=== PATIENT | female | born 1990 | race Caucasian/White ===

== ENCOUNTER 2025-04-20 13:29 | Emergency (ER) | payer OTHER, SELFPAY ==
[2025-04-20 13:40] VITALS: BP 141/93
[2025-04-20 13:56] LABS: Hematocrit 37.5 % (37.0-47.0); Hemoglobin 12.7 g/dL (12.0-16.0); Mean Corp Hgb Conc. 33.9 g/dL (33.0-37.0); Mean Corpuscular Volume 87.6 fL (81.0-99.0); Nucleated Red Blood Cells % 0 %; Platelet Count 284 10^3/uL (130-400); Red Cell Dist. Width 13.0 % (11.5-14.5)
[2025-04-20 14:06] LABS: INR 0.93; PT 12.8 Sec (11.4-14.6)
[2025-04-20 14:07] LABS: APTT 28.3 Sec (23.4-35.0)
[2025-04-20 14:25] LABS: ALT (SGPT) 12 U/L (0-35); AST (SGOT) 18 U/L (14-36); Albumin 4.1 g/dl (3.5-5.0); Alkaline Phosphatase 55 U/L (38-126); Blood Urea Nitrogen 13 mg/dl (7-17); Calcium 9.3 mg/dl (8.4-10.2); Carbon Dioxide 29 mmol/L (22-30); Chloride 108 mmol/L (98-107); Glucose 90 mg/dl (70-99); Potassium 4.2 mmol/L (3.5-5.1); Sodium 137 mmol/L (135-145); Total Protein 6.8 g/dl (6.3-8.2); eGFR > 60.00
[2025-04-20 14:36] LABS: Troponin I < 0.012 ng/ml
[2025-04-20 15:38] VITALS: BMI 24.2
[2025-04-20 15:43] VITALS: BP 111/65
[2025-04-20 16:00] VITALS: BP 97/73
--- NOTE | 2025-04-20 16:09 | ED.GENMED ---
History of Present Illness
General
Chief Complaint: Chest Pain
Time Seen by Provider: 04/20/25 16:08
History of Present Illness
History of Present Illness:
TIME OF INITIAL EVALUATION
- 4:10 PM
REVIEW OF OLD RECORDS
- The patient has history of ectopic . In 2023, the patient had an unremarkable wrist x-ray.
Note:
CHIEF COMPLAINT(S)
Sharp chest pains for the past three days.
HISTORY OF PRESENT ILLNESS
The patient is a 34-year-old female who presented with sharp chest pains that have been present intermittently for the past three days, causing her to wake up from sleep. She reports that the pain can occur at any time, including while at work and
during the night. Each episode of pain is severe enough to disturb her rest, but she notes that she can also go hours without any pain. The patient denies any history of blood clots, although she reports a family history of multiple sclerosis on her
mothers side. She is currently on control pills. She mentioned experiencing flu-like symptoms, including body aches for about a week, and noted an aching sensation in her arm, but denies any cold symptoms apart from a very bad headache.
On examination, the patient�s vital signs were normal. The attending provider noted that the cardiac blood work, including troponin levels, was normal, and no evidence of a heart attack was found. An electrocardiogram (EKG) was performed; the
computer initially read a prolonged QT interval, but the attending physician confirmed the EKG as normal upon manual review. There was no pain elicited upon palpation of the chest, and lung auscultation revealed clear breath sounds.
The attending physician considered the possibility of a pulmonary embolism and ordered a D-dimer blood test to rule out a blood clot. An x-ray was discussed but deemed unnecessary based on clinical findings.
PHYSICAL EXAM
General: Alert, no acute distress.
Skin: Warm, dry.
Head: Normocephalic, atraumatic.
Neck: Supple, trachea midline.
Eye, Ears, Nose, Mouth, and Throat: Oral mucosa moist.
Cardiovascular: Normal peripheral perfusion, no edema.
Respiratory: Respirations are non-labored, clear lung sounds on auscultation, there is no significant chest wall tenderness breath sounds are clear and equal, there is no clinical evidence for pneumothorax.
Gastrointestinal: Abdomen nondistended.
Back: Normal range of motion, normal alignment.
Musculoskeletal: Normal ROM and strength.
Neurological: Alert and oriented to person, place, time, and situation, no focal neurological deficit observed.
Psychiatric: Cooperative, appropriate mood and affect.
PLAN
1. Order a D-dimer blood test to screen for blood clots.
2. Consider an x-ray only if clinical symptoms evolve indicating the need�I offered and considered however the patient declined.
3. Follow up with the primary care physician if symptoms persist or worsen.
DIFFERENTIAL DIAGNOSIS
The Differential Diagnosis includes, in no particular order and is not limited to:
1. Costochondritis
2. Musculoskeletal pain
3. Pulmonary embolism
4. Myocardial infarction
5. Pneumothorax
6. Anxiety or panic disorder
7. Gastroesophageal reflux disease
8. Pericarditis
9. Acute coronary syndrome
10. Viral infection
RADIOLOGY
- Will hold off based on physical examination and patient preference
EKG
- Sinus 70, normal axis, no acute ST abnormality, QTc 440 ms
LABS
- White count 4.6, hemoglobin normal, chemistries and troponin unremarkable
UPDATE
-SUMMARY OF ENCOUNTER
The patient, a 34-year-old female, presented with sharp chest pains occurring intermittently over the past three days. She described the pain as severe enough to disrupt sleep, but it also subsides for hours at a time. The attending physician
evaluated the patient, reviewing cardiac workup results, including a negative troponin test, indicating no signs of a heart attack. An electrocardiogram (EKG) initially read a prolonged QT interval, but the attending confirmed the EKG as normal upon
manual review. The decision was made to hold off on a chest x-ray due to equal lung sounds and lack of indication for immediate imaging. The provider mentioned the possibility of a condition called costochondritis or a viral infection, and reassured
the patient that no life-threatening conditions were apparent at this visit.
PLAN
1. Arranged for a D-dimer blood test to rule out the presence of blood clots.
2. Considered an x-ray only if clinical symptoms necessitate.
3. Advised follow-up with the primary care physician if symptoms persist or worsen.
INDEPENDENT REVIEW OF LABS AND INTERPRETATION OF TESTS
My independent review of troponin levels indicates no sign of a heart attack.
My independent interpretation of the EKG is normal with no sign of a prolonged QT interval.
PATIENT EDUCATION AND COUNSELING
The patient was informed about possible causes of her chest pain, including costochondritis or a viral infection, and reassured that no immediate life-threatening condition was identified. She was advised to monitor her symptoms and to return if
they worsen.
FOLLOW-UP INSTRUCTIONS
The patient was advised to follow up with her primary care physician if the symptoms persist or worsen.
MEDICAL DECISION MAKING
- Complexity of Data Reviewed:
Chronic conditions affecting care include a family history of multiple sclerosis. Differential Diagnosis included costochondritis, musculoskeletal pain, pulmonary embolism, myocardial infarction, pneumothorax, anxiety or panic disorder,
gastroesophageal reflux disease, pericarditis, acute coronary syndrome, and viral infection.
- Data:
Category 1: My independent interpretation confirmed the EKG as normal. A chest x-ray was considered but not ordered due to clinical findings not supporting the need.
- Risk:
Consideration of Admission/Observation: Escalation of care, including admission/observation, was considered given the complexity and risk of the patients presenting complaint and exam findings. However, ultimately, the patient is deemed safe for
outpatient management with close follow-up. The reasoning: Work-up is reassuring, does not reveal any acute life/organ-threatening processes, patients symptoms well controlled upon reevaluation, reexamination is reassuring, vitals are stable,
patient agreeable with discharge, reliable for follow-up.
DIAGNOSIS
- Chest pain, unspecified (ICD-10: R07.9)
- Suspected costochondritis (ICD-10: M94.0)
- Possible viral infection (ICD-10: B34.9)
Appears very comfortable on reassessment, remains sinus on the monitor
Phy Exam
Physical Exam
Physical Exam:
See HPI
Scores
Heart Score for Chest Pain Patients
STEMI patient?: Not applicable
Course
Orders/Labs/Results
Orders:
Orders
04/20/25 13:30
Electrocardiogram (*1) Urgent
Reason for Study: Chest Pain
EKG- Treatment ONCE
04/20/25 13:49
Complete Blood Count/With Diff Urgent
Troponin I Urgent
04/20/25 13:50
Comprehensive Metabolic Panel Urgent
D-Dimer Urgent
Comment: ADD ON
PT/INR [Prothrombin Time] Urgent
PTT Urgent
04/20/25 16:15
Add On- LAB Urgent
Tests Added?: ddimer
Abnormal Lab Results
04/20/25 04/20/25
13:49 13:50
WBC 4.6 L 10^3/uL
(4.8-10.8)
Chloride 108 H mmol/L
(98-107)
04/20/25 13:49
04/20/25 13:50
Vital Signs
Initial and Last Documented VS:
Initial Vital Signs
Temp Pulse Resp BP Pulse Ox
37.0 C 68 16 141/93 100
04/20/25 13:40 04/20/25 13:40 04/20/25 13:40 04/20/25 13:40 04/20/25 13:40
Last Documented Vital Signs
Temp Pulse Resp BP Pulse Ox
37.0 C 69 17 103/72 100
04/20/25 13:40 04/20/25 18:00 04/20/25 18:00 04/20/25 18:00 04/20/25 18:14
*Pulse Oximetry
SaO2: 100
Oxygen Mode of Delivery: Room air
Patient hypoxic: no
*Critical Care Note
Total Time (30-74mins, 75-104mins- exclusive of procedures): Not Applicable
ED Attending Note
-
Portions of this chart may have been created with voice recognition software.� Occasional wrong word or��sound alike� substitutions may have occurred due to the inherent limitations of voice recognition software.
Discharge Plan
Departure
Patient Disposition: Home (Routine Discharge)
Date of Disposition: 04/20/25
Time of Disposition: 18:09
Patient with high blood pressure during this ER visit?: Yes
Discharge Problem:
Chest pain
Instructions: Costochondritis (DC), Chest Pain PCP Follow Up
Referrals:
Herimnio Smith MD [Family Provider, [facility]]
Activity Restrictions/Additional Instructions:
The basic blood work including troponin, and D-dimer showed no sign of heart attack or blood clots. Basic blood work is normal.
Interventions
Interventions:
*Risk Screen - Suicide Last Done: 04/20/25 15:41
*General Assessment Last Done: 04/20/25 15:41
*Neglect/Abuse Screening Last Done: 04/20/25 15:41
*ED- Fall Risk Assessment Last Done: 04/20/25 15:41
*ED COVID-19 Vaccine History Last Done: 04/20/25 15:41
*Nursing Disposition Last Done: 04/20/25 18:15
ED- Cardiac Assessment Last Done: 04/20/25 15:44
Discharge Date and Time
Discharge Date/Time: 04/20/25 18:16
Print Language: [id number]
[2025-04-20 16:40] LABS: D-Dimer < 0.27 ug/mlFEU (0.00-0.50)
[2025-04-20 17:00] VITALS: BP 105/51
[2025-04-20 18:00] VITALS: BP 103/72
== END 2025-04-20 18:16 | disposition home or self-care (01) ==
LOC: EMR 13:29
PROVIDERS: Emergency Medicine; EMERGENCY PHYSICIAN Emergency Medicine; FAMILY PHYSICIAN Family Medicine
DX: R07.9 Chest pain, unspecified (principal)
CPT/HCPCS: 99284; 80053; 84484; 85025; 85379; 85610; 85730; 93005